=== PATIENT | female | born 1965 | race Caucasian/White ===

== ENCOUNTER 2023-08-13 15:50 | Emergency (ER) | payer OTHER ==
[2023-08-13 16:27] VITALS: BMI 25.0
[2023-08-13] MEDS: SODIUM CHLORIDE 1,000 ML IV STA ×3 (16:40→17:56)
[2023-08-13] MEDS: ACETAMINOPHEN 1000 MG/100 ML BAG IVPB ONE (16:40)
[2023-08-13] MEDS ORDERED: ACETAMINOPHEN INJECTION 100 ML IVPB ONE (16:41)
[2023-08-13 16:57] LABS: HEMATOCRIT 42.4 % (32.4-45.2); HEMOGLOBIN 13.7 G/dL (10.7-15.3); MCHC 32.3 g/dl (32.0-36.0); MEAN PLT VOLUME 8.8 fl (7.5-11.1); PLATELET COUNT 214.3 10^3/uL (134-434); RBC 4.42 10^6/uL (3.60-5.2); RDW 13.8 % (11.6-15.6); WHITE BLOOD COUNT 9.3 10^3/uL (4.0-10.8)
[2023-08-13 17:01] LABS: INR 1.16 (0.83-1.09); PROTHROMBIN TIME (PATIENT) 13.2 SEC (9.7-13.0)
[2023-08-13 17:04] LABS: ACTIVATED PTT 35.7 SECONDS (25.2-36.5)
[2023-08-13 17:12] LABS: ALBUMIN 4.4 g/dl (3.4-5.0); BILIRUBIN,TOTAL 0.6 mg/dl (0.2-1); CALCIUM 9.1 mg/dl (8.5-10.1); CREATININE 1.1 mg/dl (0.6-1.3); POTASSIUM 3.2 mmol/L (3.5-5.1); TOT PROT 7.2 g/dl (6.4-8.2)
[2023-08-13 17:14] LABS: PLATELET ESTIMATE ADEQUATE
[2023-08-13] MEDS ORDERED: PIPERACILLIN/TAZOBACTAM 3.375 GM VIAL IVPB ONE (17:25)
[2023-08-13] MEDS: PIPERACILLIN/TAZOB 3.375 GM 3.375 GM in DEXTROSE 5%-WATER - 50 ML IVPB ONE (17:30)
[2023-08-13] MEDS ORDERED: KETOROLAC TROMETHAMINE 15 MG/ML VIAL ONE (17:31)
[2023-08-13] MEDS: KETOROLAC TROMETHAMINE 15 MG/ML VIAL IVPUSH ONE (17:36)
[2023-08-13] MEDS ORDERED: POTASSIUM CHLORIDE ORAL LIQUID 20 MEQ/15 ML ONE (18:13)
[2023-08-13] MEDS: POTASSIUM CHLORIDE ORAL LIQUID 20 MEQ/15 ML PO ONE (18:20)
[2023-08-13 18:25] VITALS: RESP 18
[2023-08-13 19:44] VITALS: TEMP 97.9
[2023-08-13 20:25] LABS: URINE APPEARANCE CLEAR; URINE BILIRUBIN NEGATIVE (NEGATIVE); URINE COLOR YELLOW; URINE GLUCOSE (UA) NEGATIVE (NEGATIVE); URINE KETONE 1+ (NEGATIVE)
[2023-08-13 20:26] LABS: PH,URINE 5.5 (4.5-8); URINE LEUK ESTERASE NEGATIVE (NEGATIVE); URINE NITRITE NEGATIVE (NEGATIVE); URINE PROTEIN TRACE (NEGATIVE); URINE RBC 0-2 /hpf (0-4); URINE UROBILINOGEN 0.2 (0.2-1.0)
[2023-08-13 20:27] LABS: URINE WBC 0-2 (NEGATIVE)
[2023-08-13 21:35] VITALS: BP 113/80; PULSE 85
== END 2023-08-13 21:35 | disposition short-term general hospital (02) ==
LOC: FER 15:50
DX: R51.9 Headache, unspecified (principal); R50.9 Fever, unspecified; I95.9 Hypotension, unspecified
CPT/HCPCS: 0241U-QW; 36415; 70450-TC; 71045-TC-FY; 80053; 81003; 81015; 82272; 82550; 83605; 84484; 85025; 85610; 85730; 86790; 86850; 86900; 86901; 87040; 87086; 93005; 99285-25; J0131